=== PATIENT | female | born 1945 | race Caucasian/White ===

== ENCOUNTER 2019-01-15 06:03 | Inpatient (IN) | payer MEDICARE, OTHER ==
[2019-01-15] MEDS ORDERED: FENTANYL CITRATE INJ/PF 100 MCG/2 ML AMPUL IV ONE ×2 (06:17→07:39)
[2019-01-15] MEDS ORDERED: ONDANSETRON HCL INJ/PF 4 MG/2 ML SDV IV ONE (06:17)
[2019-01-15] MEDS ORDERED: NORMAL SALINE 1000 ML 1,000 ML IV ONE (06:24)
--- NOTE | 2019-01-15 06:50 | ER Document Report ---
Entered by HEMALATHA MCCRACKEN SCRIBE 01/15/19 0618 Acting as scribe for:LILLIANA KEMP MD ED General - General Chief Complaint: Fall Injury Stated Complaint: FALL Time Seen by Provider: 01/15/19 06:08 Mode of Arrival: Medic Information source: Patient, Emergency Med Personnel Notes: This 73-year-old female patient comes emergency room by EMS after falling out of her bed this morning suffering injury to the left hip. She states that initially the pain was in the right hip region,. She found that she could not get off the floor so 911 was called. At this time she is comfortable unless her left hip is moved, and then it is quite painful. TRAVEL OUTSIDE OF THE [place] IN LAST 30 DAYS: No - Related Data Allergies/Adverse Reactions: No Known Allergies Allergy (Unverified 01/15/19 06:41) Past Medical History - General Information source: Patient - Social History Smoking Status: Never Smoker Cigarette use (# per day): No Chew tobacco use (# tins/day): No Smoking Education Provided: No Frequency of alcohol use: None Drug Abuse: None Occupation: Retired Lives with: Spouse/Significant other Family History: Reviewed & Not Pertinent Patient has suicidal ideation: No Patient has homicidal ideation: No - Past Medical History Cardiac Medical History: Reports: Hx Hypercholesterolemia, Hx Hypertension Musculoskeletal Medical History: Reports Hx Arthritis Past Surgical History: Reports: Hx Hysterectomy Review of Systems - Review of Systems Constitutional: See HPI EENT: No symptoms reported Cardiovascular: No symptoms reported Respiratory: No symptoms reported Gastrointestinal: No symptoms reported Genitourinary: No symptoms reported Female Genitourinary: No symptoms reported Musculoskeletal: See HPI, Joint pain Skin: No symptoms reported Hematologic/Lymphatic: No symptoms reported Neurological/Psychological: No symptoms reported -: Yes All other systems reviewed and negative Physical Exam - Vital signs Vitals: Temp Pulse Resp BP 98.2 F 91 16 178/89 H 01/15/19 06:03 01/15/19 06:03 01/15/19 06:03 01/15/19 06:03 - Notes Notes: PHYSICAL EXAMINATION: GENERAL: Well-appearing, well-nourished and in no acute distress. HEAD: Atraumatic, normocephalic. EYES: Pupils equal round and reactive to light, extraocular movements intact, sclera anicteric, conjunctiva are normal. ENT: nares patent, oropharynx clear without exudates. Moist mucous membranes. NECK: Normal range of motion, supple without lymphadenopathy LUNGS: Breath sounds clear to auscultation bilaterally and equal. No wheezes rales or rhonchi. HEART: Regular rate and rhythm without murmurs ABDOMEN: Soft, nontender, normoactive bowel sounds. No guarding, no rebound. No masses appreciated. PELVIS: There is some tenderness to palpate the right superior pubic ramus region. There is tenderness to palpate the left superior pubic ramus. Palpating the hip on the left does not seem tender, but internally or externally rotating the hip caused sudden severe pain causing the patient to quickly flex the hip. EXTREMITIES: Upper extremities are unremarkable. The left hip is very painful to any motion but not to direct palpation. NEUROLOGICAL: Cranial nerves grossly intact. Normal speech, normal gait. Normal sensory, motor, and reflex exams. PSYCH: Normal mood, normal affect. SKIN: Warm, Dry, normal turgor, no rashes or lesions noted. Course - Vital Signs Vital signs: Temp Pulse Resp BP Pulse Ox 99.8 F 98 18 115/52 L 94 01/18/19 14:54 01/18/19 14:54 01/18/19 12:39 01/18/19 14:54 01/18/19 12:39 - Laboratory Result Diagrams: 01/18/19 03:02 01/18/19 03:02 Laboratory results interpreted by me: 01/15/19 01/15/19 07:30 07:30 WBC 16.6 H Hgb 10.8 L Hct 31.6 L Lymph % (Auto) 6.9 L Absolute Neuts (auto) 14.7 H Seg Neutrophils % 88.7 H Sodium 130.0 L Chloride 96 L Glucose 134 H - Diagnostic Test Radiology reviewed: Image reviewed, Reports reviewed - Nondisplaced left intertrochanteric hip fracture - EKG Interpretation by Me EKG shows normal: Sinus rhythm, [place], Intervals, QRS Complexes. abnormal: ST-T Waves - Borderline anterior lateral T wave abnormalities Rate: Normal - 74 Rhythm: NSR, APC's - Consults Dr. Mo Time consulted: 07:30 Consulted provider: will see as inpatient - Request that the hospitalist service to admit the patient Dr. Yi Time consulted: 07:31 Consulted provider: will come to ER Discharge - Discharge Clinical Impression: Intertrochanteric fracture of left hip Qualifiers: Encounter type: initial encounter Fracture type: closed Fracture alignment: nondisplaced Qualified Code(s): S72.145A - Nondisplaced intertrochanteric fracture of left femur, initial encounter for closed fracture Condition: Stable Disposition: ADMITTED INPATIENT Admitting Provider: Kd (Hospitalist) Unit Admitted: Telemetry Scribe Attestation: 01/15/19 06:33 I personally performed the services described in the documentation, reviewed and edited the documentation which was dictated to the scribe in my presence, and it accurately records my words and actions. I personally performed the services described in the documentation, reviewed and edited the documentation which was dictated to the scribe in my presence, and it accurately records my words and actions.
--- NOTE | 2019-01-15 07:27 | RADIOLOGY REPORT (SQ) ---
EXAM: X-ray hip two or more views CLINICAL DATA: 73-year-old female status post fall with hip and pelvic pain TECHNICAL DATA: Two x-ray views of the pelvis and left hip were performed on 01/15/2019 at 7:16 AM. COMPARISONS: None FINDINGS: There is a minimally displaced intertrochanteric fracture of the proximal left femur. The hip joints are intact. The sacroiliac joints and pubic symphysis are intact. There are degenerative changes of the visualized lower lumbar spine. Bone mineralization is normal. There is mild soft tissue swelling surrounding the proximal left femur. IMPRESSION: Minimally displaced intertrochanteric fracture of the proximal left femur with mild surrounding soft tissue swelling.
[2019-01-15 07:49] LABS: ABSOLUTE BASOPHILS # (AUTO) 0.1 10^3/uL (0.0-0.2); ABSOLUTE LYMPHOCYTES (AUTO) 1.1 10^3/uL (0.5-4.7); ABSOLUTE MONOCYTES (AUTO) 0.7 10^3/uL (0.1-1.4); ABSOLUTE NEUT (AUTO) 14.7 10^3/uL (1.7-8.2); BASOPHILS % (AUTO) 0.3 % (0-2); EOSINOPHILS % (AUTO) 0.1 % (0-6); HEMATOCRIT 31.6 % (36.0-47.0); HEMOGLOBIN 10.8 g/dL (12.0-15.5); LYMPHOCYTES % (AUTO) 6.9 % (13-45); MEAN CORPUSCULAR HEMOGLOBIN 29.1 pg (27.0-33.4); MEAN CORPUSCULAR HGB CONC 34.3 g/dL (32.0-36.0); MEAN CORPUSCULAR VOLUME 85 fl (80-97); PLATELET COUNT 255 10^3/uL (150-450); RED BLOOD COUNT 3.73 10^6/uL (3.72-5.28); RED CELL DISTRIBUTION WIDTH 12.4 % (11.5-14.0); SEGMENTED NEUTROPHILS % (AUTO) 88.7 % (42-78); TOTAL CELLS COUNTED % (AUTO) 100 %; WHITE BLOOD COUNT 16.6 10^3/uL (4.0-10.5)
--- NOTE | 2019-01-15 07:58 | EKG REPORT ---
SEVERITY:- BORDERLINE ECG - SINUS RHYTHM ATRIAL PREMATURE COMPLEX BORDERLINE T ABNORMALITIES, ANT-LAT LEADS : Confirmed by: Veronica Ashton 15-Jan-2019 07:56:52
[2019-01-15 08:10] LABS: AMORPHOUS SEDIMENT,URINE TRACE /HPF; APPEARANCE,URINE CLOUDY; BILIRUBIN,URINE NEGATIVE (NEGATIVE); COLOR,URINE YELLOW; GLUCOSE, URINE NEGATIVE (NEGATIVE); KETONES,URINE NEGATIVE (NEGATIVE); LEUKOCYTE ESTERASE,URINE NEGATIVE (NEGATIVE); NITRITE,URINE NEGATIVE (NEGATIVE); PROTEIN,URINE NEGATIVE (NEGATIVE); URINE SPECIFIC GRAVITY 1.015; UROBILINOGEN,URINE NEGATIVE mg/dL (<2.0)
[2019-01-15 08:11] LABS: ALBUMIN 3.8 g/dL (3.5-5.0); ALKALINE PHOSPHATASE 74 U/L (38-126); ANION GAP 5 (5-19); ASPARTATE AMINO TRANSFERASE 26 U/L (14-36); BILIRUBIN,TOTAL 0.3 mg/dL (0.2-1.3); BLOOD UREA NITROGEN 17 mg/dL (7-20); CALCIUM 9.2 mg/dL (8.4-10.2); CARBON DIOXIDE 29 mmol/L (22-30); CHLORIDE 96 mmol/L (98-107); CREATINE KINASE 91 U/L (30-135); GLUCOSE 134 mg/dL (75-110); POTASSIUM 3.7 mmol/L (3.6-5.0); TOTAL PROTEIN 6.6 g/dL (6.3-8.2)
[2019-01-15] MEDS ORDERED: GLUCAGON,HUMAN RECOMB 1 MG INJ SUBCUT PRN (09:36)
[2019-01-15] MEDS ORDERED: DEXTROSE 40% GEL 15 GM TUBE PO PRN ×2 (09:36)
[2019-01-15] MEDS ORDERED: DEXTROSE 50%-WATER 25 GM/50 ML DISP.SYRIN IV PRN ×2 (09:36)
--- NOTE | 2019-01-15 09:49 | PDOC H&P ---
History of Present Illness Admission Date/PCP: 01/15/19 08:52 JEANNE HERNANDEZ CNM History of Present Illness: HOWARD WATERS is a 73 year old female who was in her usual state of health and fast asleep early this morning when she unexpectedly fell out of bed and landed on her left side. She immediately felt pain in her left hip. She was brought to the emergency department and x-rays of the left hip shows that she has a left intertrochanteric femoral fracture. She has not had anything to eat this morning. Her medical problems consist of hypertension and hyperlipidemia, both of which are well controlled. She does not have any history of an arrhythmia. She does not have any history of diabetes or renal insufficiency. She does not have any history of any sort of respiratory disorder. She is not a smoker. She does not have any metabolic derangements. Dr. Mo was consult ed in the ER. Past Medical History Cardiac Medical History: Reports: Hyperlipidema, Hypertension Musculoskeltal Medical History: Reports: Arthritis Past Surgical History Past Surgical History: Reports: Hysterectomy Social History Lives with: Spouse/Significant other Smoking Status: Never Smoker Electronic Cigarette use?: No Family History Family History: Reviewed & Not Pertinent Parental Family History Reviewed: Yes - Hypertension, hyperlipidemia Children Family History Reviewed: Yes - Hypertension Sibling(s) Family History Reviewed.: Unknown Medication/Allergy Allergies/Adverse Reactions: No Known Allergies Allergy (Unverified 01/15/19 06:41) Review of Systems All systems: reviewed and no additional remarkable complaints except as stated - All systems were reviewed and were negative except as noted in the HPI Physical Exam Vital Signs: Temp Pulse Resp BP Pulse Ox 98.2 F 72 18 151/73 H 97 01/15/19 06:03 01/15/19 08:27 01/15/19 08:27 01/15/19 08:27 01/15/19 08:27 Intake & Output 01/14/19 01/15/19 01/16/19 06:59 06:59 06:59 Weight 50.6 kg General appearance: PRESENT: no acute distress, cooperative Head exam: PRESENT: atraumatic, normocephalic Eye exam: PRESENT: EOMI, PERRLA. ABSENT: conjunctival injection, nystagmus, scleral icterus Ear exam: PRESENT: normal external ear exam Mouth exam: PRESENT: moist, neck supple Throat exam: ABSENT: post pharyngeal erythema Neck exam: PRESENT: full ROM. ABSENT: carotid bruit, JVD, lymphadenopathy, meningismus, tenderness, thyromegaly Respiratory exam: PRESENT: clear to auscultation tia, symmetrical, unlabored. ABSENT: accessory muscle use, chest wall tenderness, crackles, prolonged expiratory phas, rhonchi, tachypnea, wheezes Cardiovascular exam: PRESENT: RRR, +S1, +S2 Pulses: PRESENT: normal carotid pulses Vascular exam: PRESENT: normal capillary refill GI/Abdominal exam: PRESENT: normal bowel sounds, soft. ABSENT: distended, guarding, rebound, tenderness Extremities exam: PRESENT: tenderness - Left hip. ABSENT: clubbing, pedal edema Musculoskeletal exam: PRESENT: deformity - Some swelling noted of the left hip Neurological exam: PRESENT: alert, awake, oriented to person, oriented to place, oriented to time, oriented to situation, CN II-XII grossly intact. ABSENT: motor sensory deficit Psychiatric exam: PRESENT: appropriate affect, normal mood Skin exam: PRESENT: dry, warm Results Laboratory Results: 01/15/19 07:30 01/15/19 07:30 01/15/19 01/15/19 01/15/19 07:30 07:30 07:30 WBC 16.6 H RBC 3.73 Hgb 10.8 L Hct 31.6 L MCV 85 MCH 29.1 MCHC 34.3 RDW 12.4 Plt Count 255 Seg Neutrophils % 88.7 H Sodium 130.0 L Potassium 3.7 Chloride 96 L Carbon Dioxide 29 Anion Gap 5 BUN 17 Creatinine 0.52 Est GFR ( Amer) > 60 Glucose 134 H Calcium 9.2 Total Bilirubin 0.3 AST 26 Alkaline Phosphatase 74 Total Protein 6.6 Albumin 3.8 Urine Color YELLOW Urine Appearance CLOUDY Urine pH 7.0 Ur Specific [place] 1.015 Urine Protein NEGATIVE Urine Glucose (UA) NEGATIVE Urine Ketones NEGATIVE Urine Blood NEGATIVE Urine Nitrite NEGATIVE Ur Leukocyte Esterase NEGATIVE Urine WBC (Auto) 0 Urine RBC (Auto) 0 01/15/19 01/15/19 07:30 07:30 Creatine Kinase 91 Troponin I < 0.012 Impressions: Hip X-Ray 01/15/19 06:16 IMPRESSION: Minimally displaced intertrochanteric fracture of the proximal left femur with mild surrounding soft tissue swelling. Assessment and Plan - Diagnosis (1) Intertrochanteric fracture of left hip Qualifiers: Encounter type: initial encounter Fracture type: closed Fracture alignment: nondisplaced Qualified Code(s): S72.145A - Nondisplaced intertrochanteric fracture of left femur, initial encounter for closed fracture Is this a current diagnosis for this admission?: Yes Plan: She has not had anything to eat this morning. Controlling her pain with IV medication. Dr. Mo's been consulted. (2) Hypertension Qualifiers: Hypertension type: essential hypertension Qualified Code(s): I10 - Essential (primary) hypertension Is this a current diagnosis for this admission?: Yes Plan: We will resume her home medications postoperatively (3) Hyperlipidemia Qualifiers: Hyperlipidemia type: unspecified Qualified Code(s): E78.5 - Hyperlipidemia, unspecified Is this a current diagnosis for this admission?: Yes Plan: We will resume her statin postoperatively - Time Time Spent with patient: 35 or more minutes - Inpatient Certification Based on my medical assessment, after consideration of the patient's comorbidities, presenting symptoms, or acuity I expect that the services needed warrant INPATIENT care.: Yes I certify that my determination is in accordance with my understanding of Medicare's requirements for reasonable and necessary INPATIENT services [42 CFR 412.3e].: Yes Medical Necessity: Need For IV Fluids, Need for Surgery
[2019-01-15] MEDS: RINGERS SOLUTION,LACTATED 1,000 ML IV PRN ×2 (10:12→21:27)
[2019-01-15] MEDS: MORPHINE SULFATE 10 MG/ML INJ IV PRN ×3 (12:12→23:42)
--- NOTE | 2019-01-15 12:12 | PDOC CONSULTATION ---
Consultation Consult Date: 01/15/19 Provider Consulted: NEHEMIAS HENNESSY History of Present Illness Admission Date/PCP: 01/15/19 08:52 JEANNE HERNANDEZ CNM Patient complains of: Left hip pain History of Present Illness: HOWARD WATERS is a 73 year old female who was sleeping regular this morning when she inadvertently fell from her bed onto her left hip. Patient had notable pain with inability to weight-bear. Was brought to the emergency room where x- rays demonstrated fracture. Patient states pain is currently tolerable after morphine. Pain 04/06. Denies numbness. Past Medical History Cardiac Medical History: Reports: Hyperlipidema, Hypertension Musculoskeltal Medical History: Reports: Arthritis Past Surgical History Past Surgical History: Reports: Hysterectomy Social History Lives with: Spouse/Significant other Smoking Status: Never Smoker Electronic Cigarette use?: No Family History Family History: Reviewed & Not Pertinent Parental Family History Reviewed: No Children Family History Reviewed: No Sibling(s) Family History Reviewed.: No Medication/Allergy Home Medications: Aspirin [Ecotrin 81 mg EC Tablet] 81 mg PO DAILY 01/15/19 Cyanocobalamin (Vitamin B-12) [Vitamin B-12 1000 Mcg Tablet] 1,000 mcg PO DAILY 01/15/19 Diphenhydramine HCl [Benadryl] 25 mg PO DAILY 01/15/19 Escitalopram Oxalate [Lexapro 10 mg Tablet] 10 mg PO DAILY MDD SEE LABEL INSTRUCTIONS 01/15/19 Hydrochlorothiazide [Hydrodiuril 12.5 mg Tablet] 12.5 mg PO QAM 01/15/19 Lisinopril 20 mg PO DAILY 01/15/19 Pravastatin Sodium 40 mg PO QHS 01/15/19 Ranitidine HCl [Heartburn Relief 150] 150 mg PO DAILY 01/15/19 Allergies/Adverse Reactions: No Known Allergies Allergy (Unverified 01/15/19 06:41) Review of Systems Constitutional: ABSENT: chills, fever(s), headache(s), weight gain, weight loss Eyes: ABSENT: visual disturbances Ears: ABSENT: hearing changes Cardiovascular: ABSENT: chest pain, dyspnea on exertion, edema, orthropnea, palpitations Respiratory: ABSENT: cough, hemoptysis Gastrointestinal: ABSENT: abdominal pain, constipation, diarrhea, hematemesis, hematochezia, nausea, vomiting Genitourinary: ABSENT: dysuria, hematuria Musculoskeletal: PRESENT: as per HPI Integumentary: ABSENT: rash, wounds Neurological: ABSENT: abnormal gait, abnormal speech, confusion, dizziness, focal weakness, syncope Psychiatric: ABSENT: anxiety, depression, homidical ideation, suicidal ideation Endocrine: ABSENT: cold intolerance, heat intolerance, menstrual abnormalities, polydipsia, polyuria Hematologic/Lymphatic: ABSENT: easy bleeding, easy bruising, lymphadenopathy Physical Exam Vital Signs: Temp Pulse Resp BP Pulse Ox 98.7 F 72 15 142/70 H 97 01/15/19 10:01 01/15/19 08:27 01/15/19 12:00 01/15/19 11:01 01/15/19 12:00 Intake & Output 01/14/19 01/15/19 01/16/19 06:59 06:59 06:59 Intake Total 1000 Balance 1000 Weight 50.6 kg General appearance: PRESENT: no acute distress, well-developed, well-nourished Head exam: PRESENT: atraumatic, normocephalic Eye exam: PRESENT: conjunctiva pink, EOMI, PERRLA. ABSENT: scleral icterus Ear exam: PRESENT: normal external ear exam Mouth exam: PRESENT: moist, tongue midline Neck exam: PRESENT: full ROM. ABSENT: carotid bruit, JVD, lymphadenopathy, thyromegaly Respiratory exam: PRESENT: unlabored Cardiovascular exam: PRESENT: RRR. ABSENT: diastolic murmur, rubs, systolic murmur Pulses: PRESENT: normal dorsalis pedis pul, +2 pedal pulses bilateral Vascular exam: PRESENT: normal capillary refill GI/Abdominal exam: PRESENT: normal bowel sounds, soft. ABSENT: distended, guarding, mass, organolmegaly, rebound, tenderness Rectal exam: PRESENT: deferred Musculoskeletal exam: PRESENT: other - Left hip: Short/externally rotated. Positive logroll. Pain with attempted motion. Intact plantarflexion/dorsiflexion. No sensory deficits. Neurological exam: PRESENT: alert, awake, oriented to person, oriented to place, oriented to time, oriented to situation, CN II-XII grossly intact. ABSENT: motor sensory deficit Psychiatric exam: PRESENT: appropriate affect, normal mood. ABSENT: homicidal ideation, suicidal ideation Skin exam: PRESENT: dry, intact, warm. ABSENT: cyanosis, rash Results Laboratory Results: 01/15/19 07:30 01/15/19 07:30 01/15/19 01/15/19 01/15/19 07:30 07:30 07:30 WBC 16.6 H RBC 3.73 Hgb 10.8 L Hct 31.6 L MCV 85 MCH 29.1 MCHC 34.3 RDW 12.4 Plt Count 255 Seg Neutrophils % 88.7 H Sodium 130.0 L Potassium 3.7 Chloride 96 L Carbon Dioxide 29 Anion Gap 5 BUN 17 Creatinine 0.52 Est GFR ( Amer) > 60 Glucose 134 H Calcium 9.2 Total Bilirubin 0.3 AST 26 Alkaline Phosphatase 74 Total Protein 6.6 Albumin 3.8 Urine Color YELLOW Urine Appearance CLOUDY Urine pH 7.0 Ur Specific [place] 1.015 Urine Protein NEGATIVE Urine Glucose (UA) NEGATIVE Urine Ketones NEGATIVE Urine Blood NEGATIVE Urine Nitrite NEGATIVE Ur Leukocyte Esterase NEGATIVE Urine WBC (Auto) 0 Urine RBC (Auto) 0 01/15/19 01/15/19 07:30 07:30 Creatine Kinase 91 Troponin I < 0.012 Impressions: Hip X-Ray 01/15/19 06:16 IMPRESSION: Minimally displaced intertrochanteric fracture of the proximal left femur with mild surrounding soft tissue swelling. Status: Image reviewed by me - I have reviewed patient's radiographs consistent with left intertrochanteric fracture. Assessment & Plan - Diagnosis (1) Intertrochanteric fracture of left hip Qualifiers: Encounter type: initial encounter Fracture type: closed Fracture alignment: nondisplaced Qualified Code(s): S72.145A - Nondisplaced intertrochanteric fracture of left femur, initial encounter for closed fracture Is this a current diagnosis for this admission?: Yes Plan: Patient sustained a left intertrochanteric fracture. Today we discussed treatment options including operative versus nonoperative intervention given patient's amatory status and high quality of life decision was made to proceed with operative treatment. Risks and benefits of the surgical procedure have been explained patient verbalized understanding consented for surgical procedure. Risks include anesthetic complications, excessive bleeding, infection, injury to surrounding nerves, vessels and tendons, bruising, healing difficulties, scar formation, hardware complication, posttraumatic arthritis and any unforseen complication.
[2019-01-15] MEDS: ONDANSETRON HCL INJ/PF 4 MG/2 ML SDV IV PRN ×2 (12:20→21:27)
[2019-01-15] MEDS ORDERED: LIDOCAINE 2% INJ-PF (20 MG/ML) 10 ML AMPUL ONE (16:38)
[2019-01-15] MEDS ORDERED: FENTANYL CITRATE INJ/PF 100 MCG/2 ML AMPUL ONE (16:38)
[2019-01-15] MEDS ORDERED: PROPOFOL INJ 200 MG/20 ML VIAL IV ONE (16:38)
[2019-01-15] MEDS ORDERED: MIDAZOLAM 2 MG/2 ML INJ ONE (16:38)
[2019-01-15] MEDS ORDERED: MEPERIDINE HCL/PF INJ 25 MG/1 ML DISP.SYRIN IV PRN (18:02)
[2019-01-15] MEDS ORDERED: OXYCODONE-ACETAMINOPHEN 5-325 MG TABLET PO PRN ×2 (18:02)
[2019-01-15] MEDS ORDERED: PROMETHAZINE HCL INJ 25 MG/1 ML VIAL IV PRN ×2 (18:02)
[2019-01-15] MEDS ORDERED: ONDANSETRON HCL INJ/PF 4 MG/2 ML SDV IV PRN (18:02)
[2019-01-15] MEDS ORDERED: DIPHENHYDRAMINE HCL 50 MG/ML VIAL IV PRN (18:02)
[2019-01-15] MEDS ORDERED: FENTANYL CITRATE INJ/PF 100 MCG/2 ML AMPUL IV PRN ×3 (18:02)
--- NOTE | 2019-01-15 19:09 | Operative Report ---
Operative Report DATE OF SURGERY: 01/15/19 PREOPERATIVE DIAGNOSIS: Left intertrochanteric fracture POSTOPERATIVE DIAGNOSIS: Same OPERATION: Left hip cephalo-medullary nail SURGEON: NEHEMIAS HENNESSY ANESTHESIA: Spinal COMPLICATIONS: None ESTIMATED BLOOD LOSS: 200 cc PROCEDURE: Indication for above procedure: 73-year-old female who fell out of bed falling onto her left hip. Patient had radiographs emergency room confirming fracture. We discussed treatment options going operative versus nonoperative intervention decision was then made to pro ceed with operative treatment. Procedure detail: Patient was seen and evaluated in the preoperative holding area. The LEFT lower extremity was initialized and marked. Patient received 2 g Ancef IV for bacterial prophylaxis. Patient was taken back to the operative room where transferred operative table. Patient was placed under spinal anesthesia. Once adequate anesthetized he was carefully placed onto the hip positioner the nonoperative lower extremity and bilateral upper extremities were carefully padded and the peroneal nerve was padded and on the nonoperative extremity. The operative extremity was placed in a traction along with adduction and internal rotation. A surgical team debriefing was performed ensuring all instrumentation was available, the surgical procedure was discussed with possible concerns reviewed. A timeout was done identifying correct patient, procedure and extremity everyone in attendance agree with this and verbalized no concerns. Reduction maneuver with the use of the hip traction table were done and C-arm fluoroscopy was used to confirm optimal reduction of the intertrochanteric fracture. Once this was confirmed the lower extremity was prepped with chlor prep and draped in a sterile fashion. At this point a small skin incision was made proximal to the greater trochanter. The guidewire was placed onto the tip of the trochanter advanced down to the level of the lesser trochanter. AP and lateral fluoroscopy was used to confirm appropriate placement of the guidewire. The skin incision was then extended and the underlying fascia opened up carefully to the tip of the greater trochanter. The entry reamer was then used and advanced to the level of the lesser trochanter. At this point Ha short gamma nail was opened up and placed ont o the aiming arm and advanced down the shaft of the femur. AP and lateral fluoroscopy was then used to confirm appropriate placement of the nail. Then turned my attention to the compression screw fixation in the femoral head. The trochars were advanced to the skin, a skin incision was made, careful dissection down to the fascia to the lateral femoral cortex was then partaken. The guidewire was then used and placed in the center center position with the tip apex distance less than 25 mm. Once this position was obtained the size of the compression screw was measured. AP and lateral fluoroscopy used to confirm appropriate placement of our guide wire. A second guidewire was then placed anterior to the femoral neck to act as a derotational pin. The step reamer was used to drill up through the femoral neck and head. I then carefully advanced the compression screw into position. AP and lateral fluoroscopy was done to confirm appropriate placement of the compression screw this was then locked into position proximally. The compression screw was then disengaged from its mounting device and the guidewire was removed. Lastly proceeded with locking of the nail distally. Using the aiming arm the trochars were advanced to the skin, a skin incision was made. Careful dissection done with a hemostat to the lateral cortex of the femur. I then drilled the near and far cortices. Measured the appropriate sized distal locking screw and secured it into position. At this point AP/lateral and oblique views of the proximal and distal aspect of the nail were taken confirming appropriate placement of the compression screw, distal locking screw and intramedullary nail. Once this was confirmed I proceeded with copious irrigation of the proximal and distal wounds. The deep tissues were closed with 0 Vicryl suture, subcutaneous tissues were closed with 3-0 Monocryl suture. The skin was closed a running 3-0 subcuticular Monocryl suture and reinforced with Dermabond & Steri-Strips. A dressing was placed. Sponge counts, instrument counts and needle counts were correct. Patient was then transferred from the operating room table to the operating room stretcher. The was no intraoperative complications patient tolerated procedure well was stable to PACU. Implants used: Ha 11 x 180 mm 125 Short Gamma Nail with a 100 mm compression screw Postoperative plan: Patient will begin physical therapy on postop day #1 with Xarelto daily.
[2019-01-15] MEDS ORDERED: ONDANSETRON HCL INJ/PF 4 MG/2 ML SDV ONE (19:55)
[2019-01-16] MEDS: ONDANSETRON HCL INJ/PF 4 MG/2 ML SDV IV PRN ×3 (03:44→16:33)
[2019-01-16] MEDS: MORPHINE SULFATE 10 MG/ML INJ IV PRN ×4 (03:44→19:54)
[2019-01-16 05:18] LABS: HEMATOCRIT 25.9 % (36.0-47.0); MEAN CORPUSCULAR HEMOGLOBIN 29.6 pg (27.0-33.4); MEAN CORPUSCULAR HGB CONC 34.7 g/dL (32.0-36.0); MEAN CORPUSCULAR VOLUME 85 fl (80-97); PLATELET COUNT 214 10^3/uL (150-450); RED BLOOD COUNT 3.04 10^6/uL (3.72-5.28); RED CELL DISTRIBUTION WIDTH 12.4 % (11.5-14.0); WHITE BLOOD COUNT 10.8 10^3/uL (4.0-10.5)
[2019-01-16 05:43] LABS: ANION GAP 8 (5-19); BLOOD UREA NITROGEN 14 mg/dL (7-20); CALCIUM 8.5 mg/dL (8.4-10.2); CARBON DIOXIDE 27 mmol/L (22-30); CHLORIDE 95 mmol/L (98-107); GLUCOSE 148 mg/dL (75-110)
--- NOTE | 2019-01-16 09:03 | RADIOLOGY REPORT (SQ) ---
EXAM DESCRIPTION: HIP LEFT AP/LATERAL; NO CHG FLUORO COMPLETED DATE/TIME: 01/15/2019 7:26 pm; 01/15/2019 7:22 pm REASON FOR STUDY: IM NAILING COMPARISON: None. FLUOROSCOPY TIME: 1.6 minutes. 5 images saved to PACS. TECHNIQUE: Intra-operative images acquired during surgical procedure to evaluate progress. NUMBER OF IMAGES: 5 LIMITATIONS: None. FINDINGS: Fluoroscopic images of the proximal left femur were obtained during placement of a trochan teric fixation nail and helical blade for an intertrochanteric fracture of the proximal femur. IMPRESSION: IMAGE(S) OBTAINED DURING PROCEDURE. COMMENT: Quality ID [id number]: Final reports for procedures using fluoroscopy that document radiation exp osure indices, or exposure time and number of fluorographic images (if radiation exposure indices are not available) Please consult full operative report of the attending physician for description of the procedure. TECHNICAL DOCUMENTATION: JOB ID: [id number] [employer]- All Rights Reserved Reading location - IP/workstation name: [email or web address]
--- NOTE | 2019-01-16 09:03 | RADIOLOGY REPORT (SQ) ---
EXAM DESCRIPTION: HIP LEFT AP/LATERAL; NO CHG FLUORO COMPLETED DATE/TIME: 01/15/2019 7:26 pm; 01/15/2019 7:22 pm REASON FOR STUDY: IM NAILING COMPARISON: None. FLUOROSCOPY TIME: 1.6 minutes. 5 images saved to PACS. TECHNIQUE: Intra-operative images acquired during surgical procedure to evaluate progress. NUMBER OF IMAGES: 5 LIMITATIONS: None. FINDINGS: Fluoroscopic images of the proximal left femur were obtained during placement of a trochan teric fixation nail and helical blade for an intertrochanteric fracture of the proximal femur. IMPRESSION: IMAGE(S) OBTAINED DURING PROCEDURE. COMMENT: Quality ID [id number]: Final reports for procedures using fluoroscopy that document radiation exp osure indices, or exposure time and number of fluorographic images (if radiation exposure indices are not available) Please consult full operative report of the attending physician for description of the procedure. TECHNICAL DOCUMENTATION: JOB ID: [id number] [employer]- All Rights Reserved Reading location - IP/workstation name: [email or web address]
--- NOTE | 2019-01-16 09:48 | PDOC PROGRESS REPORT ---
Subjective Progress Note for:: 01/16/19 Subjective:: Patient doing well. Lying in bed comfortably. Did have nausea during her physical therapy but overall she feels she is doing much better than she anticipated. Denies chest pain or shortness of breath. Reason For Visit: LEFT FEMUR FRACTURE Physical Exam Vital Signs: Temp Pulse Resp BP Pulse Ox 98.1 F 78 16 113/50 L 97 01/16/19 08:08 01/16/19 08:08 01/16/19 08:08 01/16/19 08:08 01/16/19 08:08 Intake & Output 01/15/19 01/16/19 01/17/19 06:59 06:59 06:59 Intake Total 2525 Output Total 1312 Balance 1213 Weight 50.6 kg 54.44 kg General appearance: PRESENT: no acute distress, well-developed, well-nourished Head exam: PRESENT: atraumatic, normocephalic Eye exam: PRESENT: conjunctiva pink, EOMI, PERRLA. ABSENT: scleral icterus Ear exam: PRESENT: normal external ear exam Mouth exam: PRESENT: moist, tongue midline Neck exam: PRESENT: full ROM. ABSENT: carotid bruit, JVD, lymphadenopathy, thyromegaly Respiratory exam: PRESENT: unlabored Cardiovascular exam: PRESENT: RRR. ABSENT: diastolic murmur, rubs, systolic mur mur Pulses: PRESENT: normal dorsalis pedis pul, +2 pedal pulses bilateral Vascular exam: PRESENT: normal capillary refill GI/Abdominal exam: PRESENT: normal bowel sounds, soft. ABSENT: distended, guarding, mass, organolmegaly, rebound, tenderness Rectal exam: PRESENT: deferred Musculoskeletal exam: PRESENT: other - Left hip: Dressing clean/dry/intact no erythema or drainage. Moderate thigh swelling without change, intact plantarflexion/dorsiflexion. No sensory deficits. No calf tenderness. Neurological exam: PRESENT: alert, awake, oriented to person, oriented to place, oriented to time, oriented to situation, CN II-XII grossly intact. ABSENT: motor sensory deficit Psychiatric exam: PRESENT: appropriate affect, normal mood. ABSENT: homicidal ideation, suicidal ideation Skin exam: PRESENT: dry, intact, warm. ABSENT: cyanosis, rash Results Laboratory Results: 01/16/19 04:12 01/16/19 04:12 01/16/19 01/16/19 04:12 04:12 WBC 10.8 H RBC 3.04 L Hgb 9.0 L Hct 25.9 L MCV 85 MCH 29.6 MCHC 34.7 RDW 12.4 Plt Count 214 Sodium 130.2 L Potassium 4.0 Chloride 95 L Carbon Dioxide 27 Anion Gap 8 BUN 14 Creatinine 0.51 L Est GFR ( Amer) > 60 Glucose 148 H Calcium 8.5 01/15/19 01/15/19 07:30 07:30 Creatine Kinase 91 Troponin I < 0.012 Impressions: Fluoroscopy 01/15/19 00:00 IMPRESSION: IMAGE(S) OBTAINED DURING PROCEDURE. Hip X-Ray 01/15/19 06:16 IMPRESSION: Minimally displaced intertrochanteric fracture of the proximal left femur with mild surrounding soft tissue swelling. Assessment & Plan - Diagnosis (1) Intertrochanteric fracture of left hip Qualifiers: Encounter type: initial encounter Fracture type: closed Fracture alignment: nondisplaced Qualified Code(s): S72.145A - Nondisplaced intertrochanteric fracture of left femur, initial encounter for closed fracture Is this a current diagnosis for this admission?: Yes Plan: Postop day #1 status post left hip cephalo-medullary nail 1. Physical therapy weightbearing as tolerated 2. Acute blood loss anemia continue to monitor H&H 3. Xarelto for DVT prophylaxis 4. Discharge planning anticipate patient may require [facility] at a [facility] facility. Monitor physical therapy recommendations. - Time Time Spent with patient: Less than 15 minutes
[2019-01-16] MEDS: OXYCODONE-ACETAMINOPHEN 5-325 MG TABLET PO PRN ×2 (14:20→22:20)
--- NOTE | 2019-01-16 15:31 | PDOC PROGRESS REPORT ---
Subjective Progress Note for:: 01/16/19 Subjective:: No adverse events overnight. She was nauseated for a while coming out of sedation yesterday but is feeling a little better today. She still has not eaten very much. She was able to get up and do some work with physical therapy. Reason For Visit: LEFT FEMUR FRACTURE Physical Exam Vital Signs: Temp Pulse Resp BP Pulse Ox 97.6 F 80 18 135/41 H 95 01/16/19 11:08 01/16/19 11:08 01/16/19 11:08 01/16/19 11:08 01/16/19 11:08 Intake & Output 01/15/19 01/16/19 01/17/19 06:59 06:59 06:59 Intake Total 2525 Output Total 1312 Balance 1213 Weight 50.6 kg 54.44 kg General appearance: PRESENT: no acute distress, cooperative, disheveled Respiratory exam: PRESENT: clear to auscultation tia, symmetrical, unlabored. ABSENT: accessory muscle use, chest wall tenderness, crackles, prolonged expiratory phas, rhonchi, tachypnea, wheezes Cardiovascular exam: PRESENT: RRR, +S1, +S2 Pulses: PRESENT: normal carotid pulses Vascular exam: PRESENT: normal capillary refill GI/Abdominal exam: PRESENT: normal bowel sounds, soft. ABSENT: distended, guarding, rebound, tenderness Extremities exam: ABSENT: clubbing, pedal edema Musculoskeletal exam: PRESENT: other - Clean bandage over left hip incision. ABSENT: deformity Neurological exam: PRESENT: alert, awake, oriented to person, oriented to place, oriented to situation Psychiatric exam: PRESENT: appropriate affect, normal mood Skin exam: PRESENT: dry, warm Results Laboratory Results: 01/16/19 04:12 01/16/19 04:12 01/16/19 01/16/19 04:12 04:12 WBC 10.8 H RBC 3.04 L Hgb 9.0 L Hct 25.9 L MCV 85 MCH 29.6 MCHC 34.7 RDW 12.4 Plt Count 214 Sodium 130.2 L Potassium 4.0 Chloride 95 L Carbon Dioxide 27 Anion Gap 8 BUN 14 Creatinine 0.51 L Est GFR ( Amer) > 60 Glucose 148 H Calcium 8.5 01/15/19 01/15/19 07:30 07:30 Creatine Kinase 91 Troponin I < 0.012 Impressions: Fluoroscopy 01/15/19 00:00 IMPRESSION: IMAGE(S) OBTAINED DURING PROCEDURE. Hip X-Ray 01/15/19 06:16 IMPRESSION: Minimally displaced intertrochanteric fracture of the proximal left femur with mild surrounding soft tissue swelling. Assessment and Plan - Diagnosis (1) Intertrochanteric fracture of left hip Qualifiers: Encounter type: initial encounter Fracture type: closed Fracture alignment: nondisplaced Qualified Code(s): S72.145A - Nondisplaced intertrochanteric fracture of left femur, initial encounter for closed fracture Is this a current diagnosis for this admission?: Yes Plan: Status post operative repair. Weightbearing recommendations per orthopedics. We will make sure she has DVT prophylaxis ordered. We will plan for her to go to a [facility] facility for rehab. (2) Hypertension Qualifiers: Hypertension type: essential hypertension Qualified Code(s): I10 - Essential (primary) hypertension Is this a current diagnosis for this admission?: Yes Plan: Continue home medication (3) Hyperlipidemia Qualifiers: Hyperlipidemia type: unspecified Qualified Code(s): E78.5 - Hyperlipidemia, unspecified Is this a current diagnosis for this admission?: Yes Plan: Continue statin - Time Time Spent with patient: 15-24 minutes
[2019-01-16] MEDS: RINGERS SOLUTION,LACTATED 1,000 ML IV PRN (16:32)
[2019-01-16] MEDS: RIVAROXABAN 10 MG TABLET PO SCH (16:33)
[2019-01-16] MEDS ORDERED: (PENDING PHARMACY ID) (Pravastatin Sodium [Pravastatin Sodium] 40 MG) PO SCH (22:00)
[2019-01-16] MEDS: ATORVASTATIN CALCIUM 10 MG TABLET PO SCH (22:20)
[2019-01-17 06:47] LABS: HEMATOCRIT 23.1 % (36.0-47.0); MEAN CORPUSCULAR HEMOGLOBIN 29.3 pg (27.0-33.4); MEAN CORPUSCULAR HGB CONC 34.2 g/dL (32.0-36.0); MEAN CORPUSCULAR VOLUME 86 fl (80-97); PLATELET COUNT 176 10^3/uL (150-450); RED BLOOD COUNT 2.69 10^6/uL (3.72-5.28); RED CELL DISTRIBUTION WIDTH 12.3 % (11.5-14.0); WHITE BLOOD COUNT 11.1 10^3/uL (4.0-10.5)
[2019-01-17 06:58] LABS: HEMOGLOBIN 7.9 g/dL (12.0-15.5)
[2019-01-17 07:06] LABS: ANION GAP 6 (5-19); BLOOD UREA NITROGEN 9 mg/dL (7-20); CALCIUM 8.5 mg/dL (8.4-10.2); CARBON DIOXIDE 28 mmol/L (22-30); CHLORIDE 97 mmol/L (98-107); GLUCOSE 122 mg/dL (75-110); POTASSIUM 3.8 mmol/L (3.6-5.0)
--- NOTE | 2019-01-17 07:08 | PDOC PROGRESS REPORT ---
Subjective Progress Note for:: 01/17/19 Reason For Visit: LEFT FEMUR FRACTURE 73-year-old white female now postop day 1 status post open reduction internal fixation of a left intratrochanteric femur fracture. Patient is up and ablating with physical therapy yesterday is having medical minimal complaints of pain this morning. Physical Exam Vital Signs: Temp Pulse Resp BP Pulse Ox 36.8 C 84 17 110/55 L 91 L 01/17/19 04:02 01/17/19 04:02 01/17/19 04:02 01/17/19 04:02 01/17/19 04:02 Intake & Output 01/16/19 01/17/19 01/18/19 06:59 06:59 06:59 Intake Total 2525 1644 Output Total 1312 600 Balance 1213 1044 Weight 54.44 kg 60.3 kg Physical Exam: Middle-aged white female lying in a hospital bed patient is alert, oriented, appropriate. General appearance: PRESENT: no acute distress, mild distress Head exam: PRESENT: normocephalic Respiratory exam: PRESENT: unlabored - Is Cardiovascular exam: PRESENT: RRR Pulses: PRESENT: +1 pedal pulses bilateral GI/Abdominal exam: PRESENT: soft Rectal exam: PRESENT: deferred Musculoskeletal exam: PRESENT: other - Left lower extremity dressings clean dry and intact. Minimal pedal edema. Distal neurovascular examination is intact. Neurological exam: PRESENT: alert, awake, oriented to person, oriented to place, oriented to time, oriented to situation. ABSENT: motor sensory deficit Psychiatric exam: PRESENT: appropriate affect, normal mood. ABSENT: homicidal ideation, suicidal ideation Skin exam: PRESENT: dry, intact, warm. ABSENT: cyanosis, rash Results Laboratory Results: 01/17/19 05:57 01/17/19 05:57 WBC 11.1 H RBC 2.69 L Hgb 7.9 L Hct 23.1 L MCV 86 MCH 29.3 MCHC 34.2 RDW 12.3 Plt Count 176 01/15/19 01/15/19 07:30 07:30 Creatine Kinase 91 Troponin I < 0.012 Impressions: Fluoroscopy 01/15/19 00:00 IMPRESSION: IMAGE(S) OBTAINED DURING PROCEDURE. Hip X-Ray 01/15/19 06:16 IMPRESSION: Minimally displaced intertrochanteric fracture of the proximal left femur with mild surrounding soft tissue swelling. Status: Imported from PACS Assessment & Plan - Diagnosis (1) Intertrochanteric fracture of left hip Qualifiers: Encounter type: initial encounter Fracture type: closed Fracture alignment: nondisplaced Qualified Code(s): S72.145A - Nondisplaced intertrochanteric fracture of left femur, initial encounter for closed fracture Is this a current diagnosis for this admission?: Yes Plan: Weightbearing as tolerated ambulation with physical therapy. Anticipate the need for senior care facility placement. - Time Time Spent with patient: 15-24 minutes Anticipated discharge: SNF Within: when bed available
[2019-01-17] MEDS: OXYCODONE-ACETAMINOPHEN 5-325 MG TABLET PO PRN ×3 (08:30→18:49)
[2019-01-17] MEDS: LISINOPRIL 10 MG TABLET PO SCH (09:05)
[2019-01-17] MEDS: CYANOCOBALAMIN (VITAMIN B-12) 1,000 MCG TABLET PO SCH (09:05)
[2019-01-17] MEDS: FAMOTIDINE 20 MG TABLET PO SCH (09:05)
[2019-01-17] MEDS: ONDANSETRON HCL INJ/PF 4 MG/2 ML SDV IV PRN (09:08)
[2019-01-17] MEDS ORDERED: RANITIDINE HCL 150 MG PO SCH ×2 (10:00)
[2019-01-17] MEDS ORDERED: (PENDING PHARMACY ID) (Lisinopril [Lisinopril] 20 MG) PO SCH (10:00)
--- NOTE | 2019-01-17 12:03 | RADIOLOGY REPORT (SQ) ---
EXAM DESCRIPTION: CHEST SINGLE VIEW COMPLETED DATE/TIME: 01/17/2019 11:49 am REASON FOR STUDY: post-op fever and tachycardia COMPARISON: None. NUMBER OF VIEWS: One view. TECHNIQUE: Single frontal radiographic view of the chest acquired. LIMITATIONS: None. FINDINGS: LUNGS AND PLEURA: No opacities, masses or pneumothorax. No pleural effusion. MEDIASTINUM AND HILAR STRUCTURES: No masses. Contour normal. HEART AND VASCULAR STRUCTURES: Heart normal in size. Normal vasculature. BONES: No acute findings. HARDWARE: None in the chest. OTHER: No other significant finding. IMPRESSION: NO SIGNIFICANT RADIOGRAPHIC FINDING IN THE CHEST. TECHNICAL DOCUMENTATION: JOB ID: [id number] [employer]- All Rights Reserved Reading location - IP/workstation name: [email or web address]
--- NOTE | 2019-01-17 16:50 | PDOC PROGRESS REPORT ---
Subjective Progress Note for:: 01/17/19 Subjective:: She had a fever earlier this morning. She has had any cough or shortness of breath. No dysuria. Her surgical wound looks good. She has not had any nausea, vomiting, or diarrhea. No abdominal pain. Reason For Visit: LEFT FEMUR FRACTURE Physical Exam Vital Signs: Temp Pulse Resp BP Pulse Ox 100.2 F 86 16 109/43 L 95 01/17/19 15:08 01/17/19 15:08 01/17/19 15:08 01/17/19 15:08 01/17/19 15:08 Intake & Output 01/16/19 01/17/19 01/18/19 06:59 06:59 06:59 Intake Total 2525 1644 1580 Output Total 1312 1175 900 Balance 1213 469 680 Weight 54.44 kg 60.3 kg General appearance: PRESENT: no acute distress, cooperative, disheveled Respiratory exam: PRESENT: clear to auscultation tia, symmetrical, unlabored. ABSENT: accessory muscle use, chest wall tenderness, crackles, prolonged expiratory phas, rhonchi, tachypnea, wheezes Cardiovascular exam: PRESENT: RRR, +S1, +S2 Pulses: ABSENT: normal carotid pulses Vascular exam: ABSENT: normal capillary refill GI/Abdominal exam: PRESENT: normal bowel sounds, soft. ABSENT: distended, guarding, rebound, tenderness Extremities exam: ABSENT: clubbing, pedal edema Musculoskeletal exam: PRESENT: other - Clean dressing on left hip, there is some bruising but the incision shows no sign of erythema. ABSENT: deformity Neurological exam: PRESENT: alert, awake, oriented to person, oriented to place, oriented to situation Psychiatric exam: PRESENT: appropriate affect, normal mood Skin exam: PRESENT: dry, warm Results Laboratory Results: 01/17/19 05:57 01/17/19 05:57 01/17/19 01/17/19 05:57 05:57 WBC 11.1 H RBC 2.69 L Hgb 7.9 L Hct 23.1 L MCV 86 MCH 29.3 MCHC 34.2 RDW 12.3 Plt Count 176 Sodium 131.2 L Potassium 3.8 Chloride 97 L Carbon Dioxide 28 Anion Gap 6 BUN 9 Creatinine 0.53 Est GFR ( Amer) > 60 Glucose 122 H Calcium 8.5 01/15/19 01/15/19 07:30 07:30 Creatine Kinase 91 Troponin I < 0.012 Impressions: Fluoroscopy 01/15/19 00:00 IMPRESSION: IMAGE(S) OBTAINED DURING PROCEDURE. Hip X-Ray 01/15/19 06:16 IMPRESSION: Minimally displaced intertrochanteric fracture of the proximal left femur with mild surrounding soft tissue swelling. Chest X-Ray 01/17/19 00:00 IMPRESSION: NO SIGNIFICANT RADIOGRAPHIC FINDING IN THE CHEST. Assessment and Plan - Diagnosis (1) Intertrochanteric fracture of left hip Qualifiers: Encounter type: initial encounter Fracture type: closed Fracture alignment: nondisplaced Qualified Code(s): S72.145A - Nondisplaced intertrochanteric fracture of left femur, initial encounter for closed fracture Is this a current diagnosis for this admission?: Yes Plan: Status post operative repair. Pain control. Weightbearing recommendations per orthopedics. She said she wants to go to [place] to do her rehab. (2) Hypertension Qualifiers: Hypertension type: essential hypertension Qualified Code(s): I10 - Essential (primary) hypertension Is this a current diagnosis for this admission?: Yes Plan: Well-controlled with her home medications (3) Hyperlipidemia Qualifiers: Hyperlipidemia type: unspecified Qualified Code(s): E78.5 - Hyperlipidemia, unspecified Is this a current diagnosis for this admission?: Yes Plan: Continue statin - Time Time Spent with patient: 15-24 minutes
[2019-01-17] MEDS: RIVAROXABAN 10 MG TABLET PO SCH (17:12)
--- NOTE | 2019-01-17 19:00 | EKG REPORT ---
SEVERITY:- ABNORMAL ECG - SINUS TACHYCARDIA SUPRAVENTRICULAR BIGEMINY REPOL ABNRM SUGGESTS ISCHEMIA, DIFFUSE LEADS : Confirmed by: Nellie Rodriguez MD 17-Jan-2019 18:59:25
[2019-01-17] MEDS ORDERED: NORMAL SALINE 1000 ML 1,000 ML IV ONE (20:52)
[2019-01-17] MEDS ORDERED: LEVALBUTEROL HCL NEB 1.25 MG/3 ML AMPUL NEB PRN (20:53)
[2019-01-17] MEDS ORDERED: IPRATROPIUM BROMIDE 0.02% NEB 0.5 MG/2.5 ML AMPUL NEB PRN (20:53)
[2019-01-17] MEDS: IPRATROPIUM BROMIDE 0.02% NEB 0.5 MG/2.5 ML AMPUL NEB SCH (21:14)
[2019-01-17] MEDS: LEVALBUTEROL HCL NEB 1.25 MG/3 ML AMPUL NEB SCH (21:15)
[2019-01-17] MEDS ORDERED: DILTIAZEM HCL 60 MG TABLET PO ONE (21:15)
[2019-01-17] MEDS: ATORVASTATIN CALCIUM 10 MG TABLET PO SCH (21:26)
[2019-01-17 21:41] LABS: ABSOLUTE BASOPHILS # (AUTO) 0.1 10^3/uL (0.0-0.2); ABSOLUTE EOSINOPHILS # (AUTO) 0.1 10^3/uL (0.0-0.6); ABSOLUTE LYMPHOCYTES (AUTO) 2.3 10^3/uL (0.5-4.7); ABSOLUTE MONOCYTES (AUTO) 1.1 10^3/uL (0.1-1.4); ABSOLUTE NEUT (AUTO) 7.8 10^3/uL (1.7-8.2); BASOPHILS % (AUTO) 0.5 % (0-2); EOSINOPHILS % (AUTO) 0.9 % (0-6); HEMATOCRIT 20.7 % (36.0-47.0); LYMPHOCYTES % (AUTO) 20.2 % (13-45); MEAN CORPUSCULAR HEMOGLOBIN 28.9 pg (27.0-33.4); MEAN CORPUSCULAR HGB CONC 33.8 g/dL (32.0-36.0); MEAN CORPUSCULAR VOLUME 86 fl (80-97); MONOCYTES % (AUTO) 9.5 % (3-13); PLATELET COUNT 158 10^3/uL (150-450); RED BLOOD COUNT 2.42 10^6/uL (3.72-5.28); RED CELL DISTRIBUTION WIDTH 12.4 % (11.5-14.0); SEGMENTED NEUTROPHILS % (AUTO) 68.9 % (42-78); TOTAL CELLS COUNTED % (AUTO) 100 %; WHITE BLOOD COUNT 11.2 10^3/uL (4.0-10.5)
--- NOTE | 2019-01-17 22:09 | RADIOLOGY REPORT (SQ) ---
EXAM DESCRIPTION: XR ABDOMEN 1 VIEW (KUB) COMPLETED DATE/TME: 01/17/2019 00:00 CLINICAL HISTORY: 73 years, Female, sob COMPARISON: None. NUMBER OF VIEWS: One TECHNIQUE: Single frontal view of the abdomen was obtained. LIMITATIONS: None. FINDINGS: Gas and a large amount of stool are noted throughout the large bowel. Scattered gas distended loops of small bowel are visible throughout the abdomen. Partially imaged are postsurgical changes of open reduction/internal fixation of intertrochanteric fracture of the left femur. 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 Shaikh catheter is in place. Multilevel lumbar spondylosis is evident. IMPRESSION: Diffuse gaseous distention of bowel loops throughout the abdomen with moderate colonic stool load. Consider adynamic ileus. copyright 2010 [employer]- All Rights Reserved
[2019-01-17 22:17] LABS: ANION GAP 7 (5-19); BLOOD UREA NITROGEN 10 mg/dL (7-20); CALCIUM 7.7 mg/dL (8.4-10.2); CARBON DIOXIDE 27 mmol/L (22-30); CHLORIDE 94 mmol/L (98-107); CREATINE KINASE 517 U/L (30-135); GLUCOSE 107 mg/dL (75-110); POTASSIUM 3.9 mmol/L (3.6-5.0)
[2019-01-17 22:29] LABS: CREATINE KINASE MB 1.71 ng/mL (<4.55); TROPONIN I 0.032 ng/mL
[2019-01-17] MEDS ORDERED: LACTULOSE SYRUP 20 GM/30 ML UDCUP ONE ×2 (22:50→23:13)
[2019-01-17] MEDS ORDERED: CALCIUM GLUCONATE 2,000 MG in DEXTROSE 5%-WATER 100 ML IV ONE (23:00)
[2019-01-17] MEDS ORDERED: LACTULOSE SYRUP 20 GM/30 ML UDCUP PR ONE (23:00)
[2019-01-17] MEDS: DILTIAZEM HCL/D5W 125 MG/125 ML RTUINJ IV PRN (23:05)
[2019-01-17] MEDS ORDERED: CALCIUM GLUCONATE 1000 MG/10 ML INJ IV ONE (23:06)
[2019-01-18 03:17] LABS: MEAN CORPUSCULAR HEMOGLOBIN 29.1 pg (27.0-33.4); MEAN CORPUSCULAR HGB CONC 33.9 g/dL (32.0-36.0); MEAN CORPUSCULAR VOLUME 86 fl (80-97); PLATELET COUNT 163 10^3/uL (150-450); RED BLOOD COUNT 2.45 10^6/uL (3.72-5.28); RED CELL DISTRIBUTION WIDTH 12.6 % (11.5-14.0); WHITE BLOOD COUNT 10.9 10^3/uL (4.0-10.5)
[2019-01-18 03:19] LABS: HEMOGLOBIN 7.1 g/dL (12.0-15.5)
[2019-01-18 03:26] LABS: ANION GAP 7 (5-19); BLOOD UREA NITROGEN 8 mg/dL (7-20); CALCIUM 8.4 mg/dL (8.4-10.2); CARBON DIOXIDE 26 mmol/L (22-30); CHLORIDE 101 mmol/L (98-107); GLUCOSE 111 mg/dL (75-110); POTASSIUM 3.8 mmol/L (3.6-5.0)
[2019-01-18 03:38] LABS: CREATINE KINASE MB 1.65 ng/mL (<4.55); TROPONIN I 0.027 ng/mL
[2019-01-18 03:48] LABS: APPEARANCE,URINE CLEAR; BILIRUBIN,URINE NEGATIVE (NEGATIVE); COLOR,URINE STRAW; GLUCOSE, URINE NEGATIVE (NEGATIVE); KETONES,URINE NEGATIVE (NEGATIVE); PROTEIN,URINE NEGATIVE (NEGATIVE); URINE SPECIFIC GRAVITY 1.004; UROBILINOGEN,URINE NEGATIVE mg/dL (<2.0)
[2019-01-18] MEDS: RINGERS SOLUTION,LACTATED 1,000 ML IV PRN (04:11)
[2019-01-18] MEDS: OXYCODONE-ACETAMINOPHEN 5-325 MG TABLET PO PRN ×2 (04:56→19:51)
[2019-01-18] MEDS: ONDANSETRON HCL INJ/PF 4 MG/2 ML SDV IV PRN ×2 (05:59→20:22)
--- NOTE | 2019-01-18 06:47 | PDOC PROGRESS REPORT ---
Subjective Progress Note for:: 01/18/19 Reason For Visit: LEFT FEMUR FRACTURE 73-year-old female postop day 2 status post ORIF of a left intertrochanteric femur fracture. Patient with no new complaints today. Physical therapy notes yesterday Acumed fatigue as a limiting factor in her rehabilitation. Hematocrit is down to 20%. Physical Exam Vital Signs: Temp Pulse Resp BP Pulse Ox 37.6 C 86 16 117/57 L 92 01/18/19 04:05 01/18/19 04:07 01/18/19 04:05 01/18/19 05:00 01/18/19 04:07 Intake & Output 01/16/19 01/17/19 01/18/19 06:59 06:59 06:59 Intake Total 2525 1644 3200 Output Total 1312 1175 2125 Balance 8769 082 8843 Weight 54.44 kg 60.3 kg 61.2 kg Physical Exam: Middle-aged white female lying in bed complaining of nausea this morning. General appearance: PRESENT: no acute distress, mild distress Head exam: PRESENT: normocephalic Respiratory exam: PRESENT: unlabored Cardiovascular exam: PRESENT: RRR Pulses: PRESENT: +1 pedal pulses bilateral Vascular exam: PRESENT: normal capillary refill GI/Abdominal exam: PRESENT: soft Rectal exam: PRESENT: deferred Extremities exam: PRESENT: other - Left lower extremity dressings clean dry and intact. Leg lengths are equal. Neurological exam: PRESENT: alert, awake, oriented to person, oriented to place, oriented to time, oriented to situation. ABSENT: motor sensory deficit Psychiatric exam: PRESENT: appropriate affect, normal mood. ABSENT: homicidal ideation, suicidal ideation Skin exam: PRESENT: dry, intact, warm. ABSENT: cyanosis, rash Results Laboratory Results: 01/18/19 03:02 01/18/19 03:02 01/17/19 01/17/19 01/17/19 05:57 05:57 21:27 WBC 11.1 H RBC 2.69 L Hgb 7.9 L Hct 23.1 L MCV 86 MCH 29.3 MCHC 34.2 RDW 12.3 Plt Count 176 Seg Neutrophils % Sodium 131.2 L 127.9 L Potassium 3.8 3.9 Chloride 97 L 94 L Carbon Dioxide 28 27 Anion Gap 6 7 BUN 9 10 Creatinine 0.53 0.58 Est GFR ( Amer) > 60 > 60 Glucose 122 H 107 Calcium 8.5 7.7 L Magnesium 1.8 Urine Color Urine Appearance Urine pH Ur Specific [place] Urine Protein Urine Glucose (UA) Urine Ketones Urine Blood Urine RBC (Auto) 01/17/19 01/18/19 01/18/19 21:27 03:02 03:02 WBC 11.2 H 10.9 H RBC 2.42 L 2.45 L Hgb 7.0 L 7.1 L Hct 20.7 L 21.0 L MCV 86 86 MCH 28.9 29.1 MCHC 33.8 33.9 RDW 12.4 12.6 Plt Count 158 163 Seg Neutrophils % 68.9 Sodium 133.6 L Potassium 3.8 Chloride 101 Carbon Dioxide 26 Anion Gap 7 BUN 8 Creatinine 0.49 L Est GFR ( Amer) > 60 Glucose 111 H Calcium 8.4 Magnesium Urine Color Urine Appearance Urine pH Ur Specific [place] Urine Protein Urine Glucose (UA) Urine Ketones Urine Blood Urine RBC (Auto) 01/18/19 03:30 WBC RBC Hgb Hct MCV MCH MCHC RDW Plt Count Seg Neutrophils % Sodium Potassium Chloride Carbon Dioxide Anion Gap BUN Creatinine Est GFR ( Amer) Glucose Calcium Magnesium Urine Color STRAW Urine Appearance CLEAR Urine pH 6.0 Ur Specific [place] 1.004 Urine Protein NEGATIVE Urine Glucose (UA) NEGATIVE Urine Ketones NEGATIVE Urine Blood NEGATIVE Urine RBC (Auto) 0 01/15/19 01/15/19 01/17/19 07:30 07:30 21:27 Creatine Kinase 91 517 H CK-MB (CK-2) Troponin I < 0.012 01/17/19 01/18/19 01/18/19 21:27 03:02 03:02 Creatine Kinase 501 H CK-MB (CK-2) 1.71 1.65 Troponin I 0.032 0.027 Impressions: Fluoroscopy 01/15/19 00:00 IMPRESSION: IMAGE(S) OBTAINED DURING PROCEDURE. Hip X-Ray 01/15/19 06:16 IMPRESSION: Minimally displaced intertrochanteric fracture of the proximal left femur with mild surrounding soft tissue swelling. Chest X-Ray 01/17/19 00:00 IMPRESSION: NO SIGNIFICANT RADIOGRAPHIC FINDING IN THE CHEST. KUB X-Ray 01/17/19 00:00 IMPRESSION: Diffuse gaseous distention of bowel loops throughout the abdomen with moderate colonic stool load. Consider adynamic ileus. copyright 2011 [employer]- All Rights Reserved Status: Imported from PACS Assessment & Plan - Diagnosis (1) Intertrochanteric fracture of left hip Qualifiers: Encounter type: initial encounter Fracture type: closed Fracture alignment: nondisplaced Qualified Code(s): S72.145A - Nondisplaced intertrochanteric fracture of left femur, initial encounter for closed fracture Is this a current diagnosis for this admission?: Yes Plan: Continue to mobilize with physical therapy and weightbearing as tolerated basis. (2) Acute blood loss as cause of postoperative anemia Is this a current diagnosis for this admission?: Yes Plan: In light of the patient's low hematocrit and her reported exercise-induced fatigue yesterday I think the patient would do well with 2 units of packed red blood cells - Time Time Spent with patient: 15-24 minutes Anticipated discharge: SNF Within: when bed available
[2019-01-18] MEDS: LEVALBUTEROL HCL NEB 1.25 MG/3 ML AMPUL NEB SCH ×2 (08:05→20:54)
[2019-01-18] MEDS: IPRATROPIUM BROMIDE 0.02% NEB 0.5 MG/2.5 ML AMPUL NEB SCH ×2 (08:05→20:54)
[2019-01-18] MEDS: FAMOTIDINE 20 MG TABLET PO SCH (09:19)
[2019-01-18] MEDS: LISINOPRIL 10 MG TABLET PO SCH (09:19)
[2019-01-18] MEDS: CYANOCOBALAMIN (VITAMIN B-12) 1,000 MCG TABLET PO SCH (09:19)
[2019-01-18 10:40] LABS: CREATINE KINASE MB 1.36 ng/mL (<4.55); TROPONIN I 0.015 ng/mL
--- NOTE | 2019-01-18 15:39 | PDOC PROGRESS REPORT ---
Subjective Progress Note for:: 01/18/19 Subjective:: Overnight she went into atrial fibrillation with RVR and a Cardizem drip was started. Hemoglobin shows that his drop little bit more. 2 units of packed red blood cells been ordered. She said that she is felt palpitations several times at home but she is never had them evaluated. She said she felt the same sensation last night when she was noted on telemetry to be in atrial fibrillation. Reason For Visit: LEFT FEMUR FRACTURE Physical Exam Vital Signs: Temp Pulse Resp BP Pulse Ox 99.8 F 98 18 115/52 L 94 01/18/19 14:54 01/18/19 14:54 01/18/19 12:39 01/18/19 14:54 01/18/19 12:39 Intake & Output 01/17/19 01/18/19 01/19/19 06:59 06:59 06:59 Intake Total 1644 3550 0 Output Total 1175 2525 Balance 469 1025 0 Weight 60.3 kg 61.2 kg General appearance: PRESENT: no acute distress, cooperative, disheveled Respiratory exam: PRESENT: clear to auscultation tia, symmetrical, unlabored. ABSENT: accessory muscle use, chest wall tenderness, crackles, prolonged expiratory phas, rhonchi, tachypnea, wheezes Cardiovascular exam: PRESENT: Irregularly irregular Pulses: ABSENT: normal carotid pulses Vascular exam: ABSENT: normal capillary refill GI/Abdominal exam: PRESENT: normal bowel sounds, soft. ABSENT: distended, guarding, rebound, tenderness Extremities exam: ABSENT: clubbing, pedal edema Musculoskeletal exam: PRESENT: other - Clean dressing on left hip, there is some bruising but the incision shows no sign of erythema. ABSENT: deformity Neurological exam: PRESENT: alert, awake, oriented to person, oriented to place, oriented to situation Psychiatric exam: PRESENT: appropriate affect, normal mood Skin exam: PRESENT: dry, warm Results Laboratory Results: 01/18/19 03:02 01/18/19 03:02 01/17/19 01/17/19 01/18/19 21:27 21:27 03:02 WBC 11.2 H 10.9 H RBC 2.42 L 2.45 L Hgb 7.0 L 7.1 L Hct 20.7 L 21.0 L MCV 86 86 MCH 28.9 29.1 MCHC 33.8 33.9 RDW 12.4 12.6 Plt Count 158 163 Seg Neutrophils % 68.9 Sodium 127.9 L Potassium 3.9 Chloride 94 L Carbon Dioxide 27 Anion Gap 7 BUN 10 Creatinine 0.58 Est GFR ( Amer) > 60 Glucose 107 Calcium 7.7 L Magnesium 1.8 Urine Color Urine Appearance Urine pH Ur Specific [place] Urine Protein Urine Glucose (UA) Urine Ketones Urine Blood Urine RBC (Auto) Blood Type Antibody Screen 01/18/19 01/18/19 01/18/19 03:02 03:30 09:30 WBC RBC Hgb Hct MCV MCH MCHC RDW Plt Count Seg Neutrophils % Sodium 133.6 L Potassium 3.8 Chloride 101 Carbon Dioxide 26 Anion Gap 7 BUN 8 Creatinine 0.49 L Est GFR ( Amer) > 60 Glucose 111 H Calcium 8.4 Magnesium Urine Color STRAW Urine Appearance CLEAR Urine pH 6.0 Ur Specific [place] 1.004 Urine Protein NEGATIVE Urine Glucose (UA) NEGATIVE Urine Ketones NEGATIVE Urine Blood NEGATIVE Urine RBC (Auto) 0 Blood Type O POSITIVE Antibody Screen NEGATIVE 01/15/19 01/15/19 01/17/19 07:30 07:30 21:27 Creatine Kinase 91 517 H CK-MB (CK-2) Troponin I < 0.012 01/17/19 01/18/19 01/18/19 21:27 03:02 03:02 Creatine Kinase 501 H CK-MB (CK-2) 1.71 1.65 Troponin I 0.032 0.027 01/18/19 01/18/19 09:30 09:30 Creatine Kinase 456 H CK-MB (CK-2) 1.36 Troponin I 0.015 Impressions: Fluoroscopy 01/15/19 00:00 IMPRESSION: IMAGE(S) OBTAINED DURING PROCEDURE. Hip X-Ray 01/15/19 06:16 IMPRESSION: Minimally displaced intertrochanteric fracture of the proximal left femur with mild surrounding soft tissue swelling. Chest X-Ray 01/17/19 00:00 IMPRESSION: NO SIGNIFICANT RADIOGRAPHIC FINDING IN THE CHEST. KUB X-Ray 01/17/19 00:00 IMPRESSION: Diffuse gaseous distention of bowel loops throughout the abdomen with moderate colonic stool load. Consider adynamic ileus. copyright 2010 [employer]- All Rights Reserved Assessment and Plan - Diagnosis (1) Intertrochanteric fracture of left hip Qualifiers: Encounter type: initial encounter Fracture type: closed Fracture alignment: nondisplaced Qualified Code(s): S72.145A - Nondisplaced intertrochanteric fracture of left femur, initial encounter for closed fracture Is this a current diagnosis for this admission?: Yes Plan: Status post operative repair. Pain control. Weightbearing recommendations per orthopedics. She said she wants to go to [facility] to do her rehab. (2) Hypertension Qualifiers: Hypertension type: essential hypertension Qualified Code(s): I10 - Essential (primary) hypertension Is this a current diagnosis for this admission?: Yes Plan: Well-controlled with her home medications (3) Hyperlipidemia Qualifiers: Hyperlipidemia type: unspecified Qualified Code(s): E78.5 - Hyperlipidemia, unspecified Is this a current diagnosis for this admission?: Yes Plan: Continue statin (4) Atrial fibrillation with RVR Is this a current diagnosis for this admission?: Yes Plan: She may have had some paroxysms of atrial fibrillation at home, and was probably set off here by her blood loss anemia. She is on a Cardizem drip and is well controlled with a very small amount of medication. She is also getting 2 units of packed red blood cells. (5) Acute blood loss as cause of postoperative anemia Is this a current diagnosis for this admission?: Yes Plan: Hemoglobin at least stable from last night's may be the blood loss is stopped. She is getting 2 units of packed red blood cells. - Time Time Spent with patient: 25-34 minutes
[2019-01-18] MEDS: RIVAROXABAN 10 MG TABLET PO SCH (18:12)
[2019-01-18] MEDS ORDERED: ACETAMINOPHEN 325 MG TABLET ONE (18:51)
[2019-01-18] MEDS: ATORVASTATIN CALCIUM 10 MG TABLET PO SCH (22:26)
[2019-01-19] MEDS: OXYCODONE-ACETAMINOPHEN 5-325 MG TABLET PO PRN ×3 (04:53→20:08)
[2019-01-19] MEDS: ONDANSETRON HCL INJ/PF 4 MG/2 ML SDV IV PRN (04:54)
[2019-01-19 07:22] LABS: ABSOLUTE EOSINOPHILS # (AUTO) 0.4 10^3/uL (0.0-0.6); ABSOLUTE LYMPHOCYTES (AUTO) 1.1 10^3/uL (0.5-4.7); ABSOLUTE MONOCYTES (AUTO) 0.9 10^3/uL (0.1-1.4); ABSOLUTE NEUT (AUTO) 7.9 10^3/uL (1.7-8.2); BASOPHILS % (AUTO) 0.5 % (0-2); EOSINOPHILS % (AUTO) 3.6 % (0-6); HEMATOCRIT 27.7 % (36.0-47.0); LYMPHOCYTES % (AUTO) 10.8 % (13-45); MEAN CORPUSCULAR HEMOGLOBIN 29.6 pg (27.0-33.4); MEAN CORPUSCULAR HGB CONC 34.9 g/dL (32.0-36.0); MEAN CORPUSCULAR VOLUME 85 fl (80-97); MONOCYTES % (AUTO) 8.9 % (3-13); PLATELET COUNT 187 10^3/uL (150-450); RED BLOOD COUNT 3.27 10^6/uL (3.72-5.28); RED CELL DISTRIBUTION WIDTH 13.1 % (11.5-14.0); SEGMENTED NEUTROPHILS % (AUTO) 76.2 % (42-78); TOTAL CELLS COUNTED % (AUTO) 100 %; WHITE BLOOD COUNT 10.4 10^3/uL (4.0-10.5)
[2019-01-19 07:24] LABS: HEMOGLOBIN 9.7 g/dL (12.0-15.5)
[2019-01-19 07:40] LABS: ANION GAP 6 (5-19); BLOOD UREA NITROGEN 9 mg/dL (7-20); CALCIUM 8.1 mg/dL (8.4-10.2); CARBON DIOXIDE 25 mmol/L (22-30); CHLORIDE 103 mmol/L (98-107); GLUCOSE 102 mg/dL (75-110); POTASSIUM 3.9 mmol/L (3.6-5.0)
[2019-01-19] MEDS: LEVALBUTEROL HCL NEB 1.25 MG/3 ML AMPUL NEB SCH ×2 (08:11→20:31)
[2019-01-19] MEDS: IPRATROPIUM BROMIDE 0.02% NEB 0.5 MG/2.5 ML AMPUL NEB SCH ×2 (08:12→20:31)
[2019-01-19] MEDS: CYANOCOBALAMIN (VITAMIN B-12) 1,000 MCG TABLET PO SCH (10:05)
[2019-01-19] MEDS: LISINOPRIL 10 MG TABLET PO SCH (10:05)
[2019-01-19] MEDS: FAMOTIDINE 20 MG TABLET PO SCH (10:05)
--- NOTE | 2019-01-19 13:46 | PDOC PROGRESS REPORT ---
Subjective Progress Note for:: 01/19/19 Subjective:: Patient doing well. Lying in bed comfortably. Patient states she had her best day yet today and did well with physical therapy. Denies headache dizziness or loss of consciousness. Denies chest pain or shortness of breath. Reason For Visit: LEFT FEMUR FRACTURE Physical Exam Vital Signs: Temp Pulse Resp BP Pulse Ox 98.7 F 84 16 117/59 L 99 01/19/19 11:38 01/19/19 11:38 01/19/19 11:38 01/19/19 11:38 01/19/19 11:38 Intake & Output 01/18/19 01/19/19 01/20/19 06:59 06:59 06:59 Intake Total 3550 2295 Output Total 2525 1525 Balance 1025 770 Weight 61.2 kg 64.9 kg Musculoskeletal exam: PRESENT: other - Left hip: Dressing clean/dry/intact no erythema or drainage. Moderate thigh swelling without change, intact plantarflexion/dorsiflexion. No sensory deficits. No calf tenderness. Results Laboratory Results: 01/19/19 05:45 01/19/19 05:45 01/18/19 01/19/19 01/19/19 09:30 05:45 05:45 WBC 10.4 RBC 3.27 L Hgb 9.7 L D Hct 27.7 L MCV 85 MCH 29.6 MCHC 34.9 RDW 13.1 Plt Count 187 Seg Neutrophils % 76.2 Sodium 134.4 L Potassium 3.9 Chloride 103 Carbon Dioxide 25 Anion Gap 6 BUN 9 Creatinine 0.44 L Est GFR ( Amer) > 60 Glucose 102 Calcium 8.1 L Blood Type O POSITIVE Antibody Screen NEGATIVE 01/15/19 01/15/19 01/17/19 07:30 07:30 21:27 Creatine Kinase 91 517 H CK-MB (CK-2) Troponin I < 0.012 01/17/19 01/18/19 01/18/19 21:27 03:02 03:02 Creatine Kinase 501 H CK-MB (CK-2) 1.71 1.65 Troponin I 0.032 0.027 01/18/19 01/18/19 09:30 09:30 Creatine Kinase 456 H CK-MB (CK-2) 1.36 Troponin I 0.015 Impressions: Fluoroscopy 01/15/19 00:00 IMPRESSION: IMAGE(S) OBTAINED DURING PROCEDURE. Hip X-Ray 01/15/19 06:16 IMPRESSION: Minimally displaced intertrochanteric fracture of the proximal left femur with mild surrounding soft tissue swelling. Chest X-Ray 01/17/19 00:00 IMPRESSION: NO SIGNIFICANT RADIOGRAPHIC FINDING IN THE CHEST. KUB X-Ray 01/17/19 00:00 IMPRESSION: Diffuse gaseous distention of bowel loops throughout the abdomen with moderate colonic stool load. Consider adynamic ileus. copyright 2011 [employer]- All Rights Reserved Assessment & Plan - Diagnosis (1) Intertrochanteric fracture of left hip Qualifiers: Encounter type: initial encounter Fracture type: closed Fracture alignment: nondisplaced Qualified Code(s): S72.145A - Nondisplaced intertrochanteric fracture of left femur, initial encounter for closed fracture Is this a current diagnosis for this admission?: Yes Plan: Postop day #1 status post left hip cephalo-medullary nail 1. Physical therapy weightbearing as tolerated 2. Acute blood loss anemia improved after PRBCs 3. Xarelto for DVT prophylaxis 4. Discharge planning anticipate patient may require short stay at a care home facility. Monitor physical therapy recommendations. - Time Time Spent with patient: Less than 15 minutes
--- NOTE | 2019-01-19 15:33 | PDOC TRANSFER SUMMARY ---
Impression - Admit/DC Date/PCP Admission Date/Primary Care Provider: 01/15/19 08:52 JEANNE SAMANTHA HERNANDEZ Discharge Date: 01/20/19 - Discharge Diagnosis (1) Intertrochanteric fracture of left hip Is this a current diagnosis for this admission?: Yes (2) Hypertension Is this a current diagnosis for this admission?: Yes (3) Hyperlipidemia Is this a current diagnosis for this admission?: Yes (4) Atrial fibrillation with RVR Is this a current diagnosis for this admission?: Yes (5) Acute blood loss as cause of postoperative anemia Is this a current diagnosis for this admission?: Yes - Additional Information Resuscitation Status: Full Code Discharge Diet: Cardiac Discharge Activity: Supervised Activity Referrals: NEHEMIAS MO DO [ACTIVE STAFF] - Home Medications: Aspirin [Ecotrin 81 mg EC Tablet] 81 mg PO DAILY 01/15/19 Cyanocobalamin (Vitamin B-12) [Vitamin B-12 1000 Mcg Tablet] 1,000 mcg PO DAILY 01/15/19 Diphenhydramine HCl [Benadryl] 25 mg PO DAILY 01/15/19 Escitalopram Oxalate [Lexapro 10 mg Tablet] 10 mg PO DAILY MDD SEE LABEL INSTRUCTIONS 01/15/19 Hydrochlorothiazide [Hydrodiuril 12.5 mg Tablet] 12.5 mg PO BID 01/15/19 Lisinopril 20 mg PO DAILY 01/15/19 Pravastatin Sodium 40 mg PO QHS 01/15/19 Ranitidine HCl [Heartburn Relief 150] 150 mg PO DAILY 01/15/19 History of Present Illiness History of Present Illness: HOWARD WATERS is a 73 year old female who was in her usual state of health and fast asleep early this morning when she unexpectedly fell out of bed and landed on her left side. She immediately felt pain in her left hip. She was brought to the emergency department and x-rays of the left hip shows that she gotti s a left intertrochanteric femoral fracture. She has not had anything to eat this morning. Her medical problems consist of hypertension and hyperlipidemia, both of which are well controlled. She does not have any history of an arrhythmia. She does not have any history of diabetes or renal insufficiency. She does not have any history of any sort of respiratory disorder. She is not a smoker. She does not have any metabolic derangements. Dr. Mo was consulted in the ER. Hospital Course Hospital Course: She underwent surgery and tolerated the procedure well. She had some postoperative blood loss and I think this triggered her to go into atrial fibrillation. She was given a couple units of packed red blood cells her blood counts came up. She was put on a Cardizem drip after being on it for a while she was able to be converted to a sinus rhythm. She is being transitioned over to oral Cardizem. She is getting Xarelto for DVT prophylaxis for the hip fracture. I recommended that she have follow-up with a team driver to determine if she needs more prolonged work-up or anticoagulation because this would be considered a provoked atrial fibrillation and she has no prior history. She also converted rather easily once her blood counts got up and she was on a very small dose of Cardizem. She was seen and evaluated by physical therapy and [facility] facility placement for rehab was recommended. Bed was obtained [facility] and she will be transferred tomorrow morning. She is in good condition at time of dictation. Physical Exam Vital Signs: Temp Pulse Resp BP Pulse Ox 98.7 F 82 16 117/59 L 99 01/19/19 11:38 01/19/19 14:00 01/19/19 11:38 01/19/19 11:38 01/19/19 11:38 Intake & Output 01/18/19 01/19/19 01/20/19 06:59 06:59 06:59 Intake Total 3550 2295 Output Total 2525 1525 Balance 1025 770 Weight 61.2 kg 64.9 kg General appearance: PRESENT: no acute distress, cooperative, disheveled Respiratory exam: PRESENT: clear to auscultation tia, symmetrical, unlabored. ABSENT: accessory muscle use, chest wall tenderness, crackles, prolonged expiratory phas, rhonchi, tachypnea, wheezes Cardiovascular exam: PRESENT: Regular rate and rhythm Pulses: ABSENT: normal carotid pulses Vascular exam: ABSENT: normal capillary refill GI/Abdominal exam: PRESENT: normal bowel sounds, soft. ABSENT: distended, guarding, rebound, tenderness Extremities exam: ABSENT: clubbing, pedal edema Musculoskeletal exam: PRESENT: other - Clean dressing on left hip, there is some bruising but the incision shows no sign of erythema. ABSENT: deformity Neurological exam: PRESENT: alert, awake, oriented to person, oriented to place, oriented to situation Psychiatric exam: PRESENT: appropriate affect, normal mood Skin exam: PRESENT: dry, warm Results Laboratory Results: WBC 10.4 10^3/uL (4.0-10.5) 01/19/19 05:45 RBC 3.27 10^6/uL (3.72-5.28) L 01/19/19 05:45 Hgb 9.7 g/dL (12.0-15.5) L D 01/19/19 05:45 Hct 27.7 % (36.0-47.0) L 01/19/19 05:45 MCV 85 fl (80-97) 01/19/19 05:45 MCH 29.6 pg (27.0-33.4) 01/19/19 05:45 MCHC 34.9 g/dL (32.0-36.0) 01/19/19 05:45 RDW 13.1 % (11.5-14.0) 01/19/19 05:45 Plt Count 187 10^3/uL (150-450) 01/19/19 05:45 Lymph % (Auto) 10.8 % (13-45) L 01/19/19 05:45 [place] % (Auto) 8.9 % (3-13) 01/19/19 05:45 Eos % (Auto) 3.6 % (0-6) 01/19/19 05:45 Baso % (Auto) 0.5 % (0-2) 01/19/19 05:45 Absolute Neuts (auto) 7.9 10^3/uL (1.7-8.2) 01/19/19 05:45 Absolute Lymphs (auto) 1.1 10^3/uL (0.5-4.7) 01/19/19 05:45 Absolute Monos (auto) 0.9 10^3/uL (0.1-1.4) 01/19/19 05:45 Absolute Eos (auto) 0.4 10^3/uL (0.0-0.6) 01/19/19 05:45 Absolute Basos (auto) 0.0 10^3/uL (0.0-0.2) 01/19/19 05:45 Seg Neutrophils % 76.2 % (42-78) 01/19/19 05:45 Sodium 134.4 mmol/L (137-145) L 01/19/19 05:45 Potassium 3.9 mmol/L (3.6-5.0) 01/19/19 05:45 Chloride 103 mmol/L (98-107) 01/19/19 05:45 Carbon Dioxide 25 mmol/L (22-30) 01/19/19 05:45 Anion Gap 6 (5-19) 01/19/19 05:45 BUN 9 mg/dL (7-20) 01/19/19 05:45 Creatinine 0.44 mg/dL (0.52-1.25) L 01/19/19 05:45 Est GFR ( Amer) > 60 (>60) 01/19/19 05:45 Est GFR (MDRD) Non-Af > 60 (>60) 01/19/19 05:45 Glucose 102 mg/dL (75-110) 01/19/19 05:45 Calcium 8.1 mg/dL (8.4-10.2) L 01/19/19 05:45 Magnesium 1.8 mg/dL (1.6-2.3) 01/17/19 21:27 Total Bilirubin 0.3 mg/dL (0.2-1.3) 01/15/19 07:30 Direct Bilirubin 0.0 mg/dL (0.0-0.4) 01/15/19 07:30 Neonat Total Bilirubin Not Reportable 01/15/19 07:30 Neonat Direct Bilirubin Not Reportable 01/15/19 07:30 Neonat Indirect Bili Not Reportable 01/15/19 07:30 AST 26 U/L (14-36) 01/15/19 07:30 ALT 18 U/L (<35) 01/15/19 07:30 Alkaline Phosphatase 74 U/L (38-126) 01/15/19 07:30 Creatine Kinase 456 U/L (30-135) H 01/18/19 09:30 CK-MB (CK-2) 1.36 ng/mL (<4.55) 01/18/19 09:30 Troponin I 0.015 ng/mL 01/18/19 09:30 Total Protein 6.6 g/dL (6.3-8.2) 01/15/19 07:30 Albumin 3.8 g/dL (3.5-5.0) 01/15/19 07:30 Urine Color STRAW 01/18/19 03:30 Urine Appearance CLEAR 01/18/19 03:30 Urine pH 6.0 (5.0-9.0) 01/18/19 03:30 Ur Specific [place] 1.004 01/18/19 03:30 Urine Protein NEGATIVE mg/dL (NEGATIVE) 01/18/19 03:30 Urine Glucose (UA) NEGATIVE mg/dL (NEGATIVE) 01/18/19 03:30 Urine Ketones NEGATIVE mg/dL (NEGATIVE) 01/18/19 03:30 Urine Blood NEGATIVE (NEGATIVE) 01/18/19 03:30 Urine Nitrite NEGATIVE (NEGATIVE) 01/15/19 07:30 Urine Nitrite (Reflex) NEGATIVE (NEGATIVE) 01/18/19 03:30 Urine Bilirubin NEGATIVE (NEGATIVE) 01/18/19 03:30 Urine Urobilinogen NEGATIVE mg/dL (<2.0) 01/18/19 03:30 Ur Leukocyte Esterase NEGATIVE (NEGATIVE) 01/15/19 07:30 Leukocyte Esterase Rfl NEGATIVE (NEGATIVE) 01/18/19 03:30 Urine WBC (Auto) 0 /HPF 01/15/19 07:30 Urine RBC (Auto) 0 /HPF 01/18/19 03:30 Urine Bacteria (Auto) TRACE /HPF 01/15/19 07:30 Urine WBC (Reflex) 1 /HPF 01/18/19 03:30 Squamous Epi Cells Auto <1 /HPF 01/18/19 03:30 Amorphous Sediment Auto TRACE /HPF 01/15/19 07:30 Urine Mucus (Auto) RARE /LPF 01/15/19 07:30 Urine Ascorbic Acid NEGATIVE (NEGATIVE) 01/18/19 03:30 Blood Type O POSITIVE 01/18/19 09:30 Antibody Screen NEGATIVE 01/18/19 09:30 Crossmatch See Detail 01/18/19 09:30 01/15/19 01/17/19 01/18/19 07:30 21:27 03:02 CK-MB (CK-2) 1.71 1.65 Troponin I < 0.012 0.032 0.027 01/18/19 09:30 CK-MB (CK-2) 1.36 Troponin I 0.015 Impressions: Fluoroscopy 01/15/19 00:00 IMPRESSION: IMAGE(S) OBTAINED DURING PROCEDURE. Hip X-Ray 01/15/19 00:00 IMPRESSION: IMAGE(S) OBTAINED DURING PROCEDURE. Hip X-Ray 01/15/19 06:16 IMPRESSION: Minimally displaced intertrochanteric fracture of the proximal left femur with mild surrounding soft tissue swelling. Chest X-Ray 01/17/19 00:00 IMPRESSION: NO SIGNIFICANT RADIOGRAPHIC FINDING IN THE CHEST. KUB X-Ray 01/17/19 00:00 IMPRESSION: Diffuse gaseous distention of bowel loops throughout the abdomen with moderate colonic stool load. Consider adynamic ileus. copyright 2010 [employer]- All Rights Reserved Plan Time Spent: Greater than 30 Minutes Stroke Is this a Stroke Patient?: No Acute Heart Failure - Is this a Heart Failure Patient?: No
[2019-01-19] MEDS: RIVAROXABAN 10 MG TABLET PO SCH (16:31)
[2019-01-19] MEDS: DILTIAZEM HCL/D5W 125 MG/125 ML RTUINJ IV PRN (16:31)
[2019-01-19] MEDS: DILTIAZEM HCL 120 MG CAP.SR.24H PO SCH (22:11)
[2019-01-19] MEDS: ATORVASTATIN CALCIUM 10 MG TABLET PO SCH (22:11)
[2019-01-20] MEDS: OXYCODONE-ACETAMINOPHEN 5-325 MG TABLET PO PRN ×2 (06:35→10:56)
[2019-01-20] MEDS: LEVALBUTEROL HCL NEB 1.25 MG/3 ML AMPUL NEB SCH (09:00)
[2019-01-20] MEDS: IPRATROPIUM BROMIDE 0.02% NEB 0.5 MG/2.5 ML AMPUL NEB SCH (09:01)
[2019-01-20] MEDS: LISINOPRIL 10 MG TABLET PO SCH (09:08)
[2019-01-20] MEDS: FAMOTIDINE 20 MG TABLET PO SCH (09:08)
[2019-01-20] MEDS: DILTIAZEM HCL 120 MG CAP.SR.24H PO SCH (09:08)
[2019-01-20] MEDS: CYANOCOBALAMIN (VITAMIN B-12) 1,000 MCG TABLET PO SCH (09:08)
[2019-01-20 09:09] VITALS: BP 129/71
[2019-01-20] MEDS ORDERED: DOCUSATE SODIUM 100 MG CAPSULE PO SCH (10:00)
--- NOTE | 2019-01-20 13:07 | EKG REPORT ---
SEVERITY:- ABNORMAL ECG - ATRIAL FIBRILLATION LOW VOLTAGE IN FRONTAL LEADS : Confirmed by: Nellie Rodriguez MD 20-Jan-2019 13:06:44
== END 2019-01-20 13:35 | DRG 481 ==
LOC: ER 06:03 → EH 08:52 → 4N 12:40 → 3W 01-17 22:30
PROVIDERS: ADMIT Family Medicine; ATTEND Family Medicine
PROC: 0QS734Z Reposition Left Upper Femur with Internal Fixation Device, Percutaneous Approach (ICD-10-PCS; principal; 2019-01-15 17:45)
PROC: 30233N1 Transfusion of Nonautologous Red Blood Cells into Peripheral Vein, Percutaneous Approach (ICD-10-PCS; 2019-01-18)
DX: S72.145A Nondisplaced intertrochanteric fracture of left femur, initial encounter for closed fracture (principal); D62 Acute posthemorrhagic anemia; I48.91 Unspecified atrial fibrillation; I10 Essential (primary) hypertension; E78.00 Pure hypercholesterolemia, unspecified; M25.552 Pain in left hip; W06.XXXA Fall from bed, initial encounter; Y93.89 Activity, other specified; Y92.092 Bedroom in other non-institutional residence as the place of occurrence of the external cause
CPT/HCPCS: 01230; 36415; 36430; 71045; 74018; 80048; 80053; 81001; 82550; 82553; 83735; 84484; 85025; 85027; 86850; 86900; 86901; 86920; 93005; 93010; 94640; 94799; 96361; 96374; 96375; 96376; 99285; C1713; C1769; J0610; J0690; J2250; J2270; J2405; J2704; J3010; J3490; J7030; J7060; J7120; P9016